=== PATIENT | female | born 1985 | race Caucasian/White ===

== ENCOUNTER 2020-04-06 19:47 | Outpatient (CLI) | payer OTHER ==
[~2020-04-06 19:47] MED LIST: KETOROLAC TROME10 MG PO; NORCO 5-325 TA1 EACH PO; OMEPRAZOLE20 MG PO; PRAMET FA TAB1 EA PO; TESSALON PERLE100 MG PO; VITAMIN D250000 UNIT PO; ZOFRAN4 MG PO
== END 2020-04-06 21:33 | disposition home or self-care (01) ==
LOC: GENOP 19:47
DX: Z53.8 Procedure and treatment not carried out for other reasons (principal)
CPT/HCPCS: 82962; 83518; G0463

== ENCOUNTER 2020-04-08 05:25 | Inpatient (IN) | payer OTHER ==
[~2020-04-08] VITALS: Ht 167.6 cm; Wt 110.7 kg
[2020-04-08 06:55] LABS: HEMOGLOBIN 12.5 gm/dl (12.3-15.3); RED BLOOD COUNT 3.95 M/UL (4.00-5.10); WHITE BLOOD COUNT 17.4 K/UL (4.5-11.0)
[2020-04-08] MEDS ORDERED: PRENATAL VITAM1 EAC8 PO (07:17)
[2020-04-08] MEDS ORDERED: GLUCOPHAGE1000 MG PO (07:18)
[2020-04-08] MEDS ORDERED: IBUPROFEN600 MG PO (15:16)
[2020-04-08] MEDS ORDERED: DOCUSATE SODIU100 MG PO (15:16)
[2020-04-09 06:24] LABS: HEMOGLOBIN 11.7 gm/dl (12.3-15.3)
[2020-04-09] MEDS ORDERED: DOCUSATE SODIU250 MG PO (13:21)
[2020-04-09] MEDS ORDERED: IBUPROFEN600 MG PO (13:21)
[2020-04-09] MEDS ORDERED: LABETALOL HCL200 MG PO (13:22)
== END 2020-04-09 17:43 | disposition home or self-care (01) | DRG 807 ==
LOC: OB 05:25
PROVIDERS: Obstetrics & Gynecology; ADMIT Obstetrics & Gynecology
PROC: 10E0XZZ Delivery of Products of Conception, External Approach (ICD-10-PCS; principal; 2020-04-08)
PROC: 10907ZC Drainage of Amniotic Fluid, Therapeutic from Products of Conception, Via Natural or Artificial Opening (ICD-10-PCS; 2020-04-08)
PROC: 3E033VJ Introduction of Other Hormone into Peripheral Vein, Percutaneous Approach (ICD-10-PCS; 2020-04-08)
PROC: 0HB9XZZ Excision of Perineum Skin, External Approach (ICD-10-PCS; 2020-04-08)
DX: O24.425 Gestational diabetes mellitus in childbirth, controlled by oral hypoglycemic drugs (principal); Z37.0 Single live birth; O99.334 Smoking (tobacco) complicating childbirth; F17.210 Nicotine dependence, cigarettes, uncomplicated; Z3A.34 34 weeks gestation of pregnancy; N90.89 Other specified noninflammatory disorders of vulva and perineum
CPT/HCPCS: 36415; 51702; 81001; 82800; 82962; 83518; 85014; 85018; 85025; G0463; J2590; J7030